=== PATIENT | male | born 1990 | race Caucasian/White ===

== ENCOUNTER 2018-06-09 10:03 | Emergency (ER) | payer SELFPAY ==
--- OUTSIDE RECORDS SUMMARY | 2018-06-09 10:05 | XMS REPORT | Clinical Summary ---
:1990 Author Organization [facility] Address [address] [place] [address] Care Team Providers Name Role Phone Sharpless Primary Care Provider Allergies No Known Allergies Medications No known medications Active Problems Problem Noted Date Hypomagnesemia 07/19/2016 Leukocytosis 07/19/2016 Smoker 07/19/2016 Metabolic acidosis 07/19/2016 Dental abscess 07/18/2016 Pain due to abscess 07/18/2016 Trismus 07/18/2016 Family History Medical History Relation Name Comments Hypertension Father Hypertension Maternal Grandfather Hypertension Maternal Grandmother Hypertension Mother Relation Name Status Comments Father Maternal Grandfather Maternal Grandmother Mother Social History Tobacco Use Types Packs/Day Years Used Date Current Every Day Smoker Cigarettes 0.5 3 Alcohol Use Drinks/Week oz/Week Comments Yes Used to drink 18 packs per week. Quit 2 weeks ago. Sex Assigned at Date Recorded Not on file Job Start Date Occupation Industry Not on file Not on file Not on file Travel History Travel Start Travel End No recent travel history available. Last Filed Vital Signs Not on file Plan of Treatment Not on file Results Not on fileafter 06/08/2017 Advance Directives For more information, please contact:[facility] [employer] [address] [place], [place] [phone] Code Status Date Activated Date Inactivated Comments Full Code 07/18/2016 2:57 PM 07/21/2016 6:58 PM This code status was determined by: Patient Full Code 07/18/2016 8:59 AM 07/18/2016 2:57 PM This code status was determined by: Patient
--- OUTSIDE RECORDS SUMMARY | 2018-06-09 10:05 | XMS REPORT ---
:1990 [facility] Address [address] [place] [address] Dr. Sow [address] [place] [id number] Care Team Providers Name Role Phone JENN LOUISA MITCHELL Unavailable Unavailable Problems This patient has no known problems. Allergies, Adverse Reactions, Alerts This patient has no known allergies or adverse reactions. Medications This patient has no known medications. Results Test Description Test Time Test Comments Text Results Atomic Results Result Comments AFB CULTURE + SMEAR 2016-09-05 18:21:00 Test Item Value Reference Range Comments CULTURE (BEAKER) (test [id number]) No acid-fast bacilli isolated in 42 days AFB SMEAR (BEAKER) (test [id number]) No acid fast bacilli seen FUNGUS CULTURE + [id number] 17:21:00 Test Item Value Reference Range Comments CULTURE (BEAKER) (test No fungus isolated in 28 days [id number]) FUNGUS SMEAR (BEAKER) (test No fungi seen [id number])
[2018-06-09] MEDS ORDERED: IBUPROFEN 400 MG TAB ONE (10:33)
[2018-06-09] MEDS ORDERED: IBUPROFEN 200 MG TAB PO ONE (10:34)
--- NOTE | 2018-06-09 11:02 | RAD REPORT ---
EXAM DESCRIPTION: RAD -Hand Left 3 View - 06/09/2018 10:46 am CLINICAL HISTORY: Left hand pain status post injury FINDINGS: Mildly displaced fracture involves the fifth metacarpal neck with angulation at the fractu re site. No dislocation
[2018-06-09] MEDS ORDERED: HYDROCODONE/APAP 5/325 MG TAB ONE (11:38)
--- NOTE | 2018-06-09 11:57 | EDPHYS ---
Physician Documentation [facility] Name: Doc Hatch Age: 27 yrs Sex: Male : 1990 Arrival Date: 06/09/2018 Time: 10:04 Bed 19 Private MD: None, None ED Physician Shayan Diamond HPI: 06/09 10:30 This 27 yrs old Male presents to ER via Ambulatory with complaints of Hand gs Injury. 10:30 The patient or guardian reports injury. The complaints affect the left hand diffusely. gs Context: The problem was sustained at home, resulted from a crush injury, a direct blow. Onset: The symptoms/episode began/occurred acutely, just prior to arrival. Modifying factors: the symptoms are aggravated by movement. Associated signs and symptoms: Pertinent negatives: decreased sensation distally, numbness distally. Severity of symptoms: At their worst the symptoms were moderate, in the emergency department the symptoms are unchanged. The patient has not experienced similar symptoms in the past. The patient has not recently seen a physician. Historical: - Allergies: 10:13 No Known Allergies; iw - Home Meds: 10:13 None [Active]; iw - PMHx: 10:13 None; iw - PSHx: 10:13 jaw surgery; iw - Immunization history:: Adult Immunizations not up to date. - Social history:: Smoking status: Patient uses tobacco products, smokes one-half pack cigarettes per day. - Ebola Screening: : Patient negative for fever greater than or equal to 101.5 degrees Fahrenheit, and additional compatible Ebola Virus Disease symptoms Patient denies exposure to infectious person Patient denies travel to an Ebola-affected area in the 21 days before illness onset No symptoms or risks identified at this time. ROS: 10:30 All other systems are negative. gs Exam: 10:30 Head/Face: Normocephalic, atraumatic. Eyes: Pupils equal round and reactive to light, gs extra-ocular motions intact. Lids and lashes normal. Conjunctiva and sclera are non-icteric and not injected. Cornea within normal limits. Periorbital areas with no swelling, redness, or edema. ENT: Nares patent. No nasal discharge, no septal abnormalities noted. Tympanic membranes are normal and external auditory canals are clear. Oropharynx with no redness, swelling, or masses, exudates, or evidence of obstruction, uvula midline. Mucous membranes moist. Neck: Trachea midline, no thyromegaly or masses palpated, and no cervical lymphadenopathy. Supple, full range of motion without nuchal rigidity, or vertebral point tenderness. No Meningismus. Chest/axilla: Normal chest wall appearance and motion. Nontender with no deformity. No lesions are appreciated. Cardiovascular: Regular rate and rhythm with a normal S1 and S2. No gallops, murmurs, or rubs. Normal PMI, no JVD. No pulse deficits. Respiratory: Lungs have equal breath sounds bilaterally, clear to auscultation and percussion. No rales, rhonchi or wheezes noted. No increased work of breathing, no retractions or nasal flaring. Abdomen/GI: Soft, non-tender, with normal bowel sounds. No distension or tympany. No guarding or rebound. No evidence of tenderness throughout. Back: No spinal tenderness. No costovertebral tenderness. Full range of motion. Skin: Warm, dry with normal turgor. Normal color with no rashes, no lesions, and no evidence of cellulitis. Neuro: Awake and alert, GCS 15, oriented to person, place, time, and situation. Cranial nerves II-XII grossly intact. Motor strength 5/5 in all extremities. Sensory grossly intact. Cerebellar exam normal. Normal gait. 10:30 Constitutional: The patient appears alert, awake, uncomfortable. 10:30 Musculoskeletal/extremity: ROM: limited active range of motion due to pain, limited passive range of motion due to pain, Circulation is intact in all extremities. Sensation intact. Compartment Syndrome exam of affected extremity: is normal. Vital Signs: 10:13 BP 139 / 93; Pulse 75; Resp 16; Temp 97.5; Pulse Ox 99% on R/A; Weight 73.48 kg; Height iw 5 ft. 11 in. (180.34 cm); Pain 8/10; 10:13 Body Mass Index 22.59 (73.48 kg, 180.34 cm) iw Procedures: 11:47 Splinting: Splint applied to left wrist and left hand applied by tech. gs MDM: 10:15 Patient medically screened. gs 10:30 Differential diagnosis: dislocation, closed fracture, contusion. Data reviewed: vital gs signs, nurses notes. Counseling: I had a detailed discussion with the patient and/or guardian regarding: the historical points, exam findings, and any diagnostic results supporting the discharge/admit diagnosis, the presence of at least one elevated blood pressure reading (>120/80) during this emergency department visit, radiology results. Response to treatment: the patient's symptoms have mildly improved after treatment, and as a result, I will discharge patient. Special discussion: I have referred the patient to see his PCP for further evaluation of high blood pressure. 06/09 10:16 Order name: Hand Left 3 View XRAY 06/09 11:03 Order name: RAD; Complete Time: 11:47 EDNY 06/09 11:28 Order name: Ulnar Gutter splint; Complete Time: 11:28 em Administered Medications: 10:27 Drug: Motrin 600 mg Route: PO; em 11:26 Follow up: Response: No adverse reaction; Pain is unchanged, physician notified em 11:27 Drug: [place] 5 mg-325 mg 1 tabs Route: PO; em 12:03 Follow up: Response: No adverse reaction; Pain is decreased em Disposition: 06/09/18 11:55 Discharged to Home. Impression: Displaced fracture of base of fifth metacarpal bone. left hand. - Condition is Stable. - Discharge Instructions: Metacarpal Fracture, [id number]. - Prescriptions for Tylenol- Codeine #4 300-60 mg Oral Tablet - take 1 tablet by ORAL route every 6 hours As needed; 10 tablet. - Medication Reconciliation Form, Thank You Letter, Antibiotic Education, Prescription Opioid Use form. - Follow up: Private Physician; When: 2 - 3 days; Reason: Re-evaluation by your physician. Signatures: Dispatcher [employer] [facility] Amado Lee, ANIMAL CONTROL SPECIALIST ANIMAL CONTROL SPECIALIST Kym Ashby, PRIYA POWERS Shayan Diamond MD MD gs Corrections: (The following items were deleted from the chart) 12:04 11:55 06/09/2018 11:55 Discharged to Home. Impression: Displaced fracture of base of em fifth metacarpal bone. left hand. Condition is Stable. Forms are Medication Reconciliation Form, Thank You Letter, Antibiotic Education, Prescription Opioid Use. Follow up: Private Physician; When: 2 - 3 days; Reason: Re-evaluation by your physician.
--- NOTE | 2018-06-09 11:57 | ER ---
Nurse's Notes [facility] Name: Doc Hatch Age: 27 yrs Sex: Male : 1990 Arrival Date: 06/09/2018 Time: 10:04 Bed 19 Private MD: None, None Diagnosis: Displaced fracture of base of fifth metacarpal bone. left hand Presentation: 06/09 10:11 Presenting complaint: Patient states: was working on his car this morning, gross fell iw onto left hand, bruising and swelling noted to hand. Transition of care: patient was not received from another setting of care. Onset of symptoms was June 09, 2018. Risk Assessment: Do you want to hurt yourself or someone else? Patient reports no desire to harm self or others. Initial Sepsis Screen: Does the patient meet any 2 criteria? No. Patient's initial sepsis screen is negative. Does the patient have a suspected source of infection? No. Patient's initial sepsis screen is negative. Care prior to arrival: None. 10:11 Method Of Arrival: Ambulatory iw 10:11 Acuity: FIGUEROA 4 iw Historical: - Allergies: 10:13 No Known Allergies; iw - Home Meds: 10:13 None [Active]; iw - PMHx: 10:13 None; iw - PSHx: 10:13 jaw surgery; iw - Immunization history:: Adult Immunizations not up to date. - Social history:: Smoking status: Patient uses tobacco products, smokes one-half pack cigarettes per day. - Ebola Screening: : Patient negative for fever greater than or equal to 101.5 degrees Fahrenheit, and additional compatible Ebola Virus Disease symptoms Patient denies exposure to infectious person Patient denies travel to an Ebola-affected area in the 21 days before illness onset No symptoms or risks identified at this time. Screenin:34 Abuse screen: Denies threats or abuse. Nutritional screening: No deficits noted. em Tuberculosis screening: No symptoms or risk factors identified. Fall Risk None identified. Assessment: 10:26 General: Appears in no apparent distress. comfortable, Behavior is calm, cooperative. em Pain: Complains of pain in left hand Pain currently is 8 out of 10 on a pain scale. Neuro: Level of Consciousness is awake, alert, obeys commands, Oriented to person, place, time, situation. Cardiovascular: Capillary refill < 3 seconds Patient's skin is warm and dry. Respiratory: Airway is patent Respiratory effort is even, unlabored, Respiratory pattern is regular, symmetrical. Derm: Skin is intact, is healthy with good turgor, Skin is pink, warm \T\ dry. Bruising that is on left hand. Musculoskeletal: Range of motion: limited in MCP of left little finger and MCP of left ring finger Swelling present in left hand. Injury Description: Crush injury sustained to left hand. 10:45 Reassessment: Patient appears in no apparent distress at this time. I agree with above iw assessment by Amado Lee LVN. 11:30 Reassessment: Patient appears in no apparent distress at this time. Patient and/or em family updated on plan of care and expected duration. Pain level reassessed. Patient is alert, oriented x 3, equal unlabored respirations, skin warm/dry/pink. Patient states feeling better. Vital Signs: 10:13 BP 139 / 93; Pulse 75; Resp 16; Temp 97.5; Pulse Ox 99% on R/A; Weight 73.48 kg; Height iw 5 ft. 11 in. (180.34 cm); Pain 8/10; 10:13 Body Mass Index 22.59 (73.48 kg, 180.34 cm) iw ED Course: 10:04 Patient arrived in ED. sb2 10:05 None, None is Private Physician. sb2 10:08 Shayna Diamond MD is Attending Physician. gs 10:12 Triage completed. iw 10:13 Arm band placed on. iw 10:21 Amado Lee LVN is Primary Nurse. em 10:34 Patient has correct armband on for positive identification. Bed in low position. Call em light in reach. 11:28 No provider procedures requiring assistance completed. Patient did not have IV access em during this emergency room visit. Orthoglass splint: Ulnar gutter/Boxer splint applied on left forearm. Administered Medications: 10:27 Drug: Motrin 600 mg Route: PO; em 11:26 Follow up: Response: No adverse reaction; Pain is unchanged, physician notified em 11:27 Drug: [place] 5 mg-325 mg 1 tabs Route: PO; em 12:03 Follow up: Response: No adverse reaction; Pain is decreased em Outcome: 11:55 Discharge ordered by . gs 12:04 Discharged to home ambulatory. em 12:04 Condition: good 12:04 Discharge instructions given to patient, Instructed on discharge instructions, follow up and referral plans. medication usage, Demonstrated understanding of instructions, follow-up care, medications, Prescriptions given X 1. 12:04 Patient left the ED. em Signatures: Amado Lee, TROUBLE TRACER TROUBLE TRACER em Kym Ashby RN RN iw Starr, Gregory, MD MD Angela Reynolds sb2
== END 2018-06-09 12:04 | disposition home or self-care (01) ==
LOC: ER 10:03
PROC: 2W3DX1Z Immobilization of Left Lower Arm using Splint (ICD-10-PCS; principal; 2018-06-09)
DX: S62.317A Displaced fracture of base of fifth metacarpal bone, left hand, initial encounter for closed fracture (principal); W22.8XXA Striking against or struck by other objects, initial encounter; Y93.89 Activity, other specified; Y92.009 Unspecified place in unspecified non-institutional (private) residence as the place of occurrence of the external cause; F17.210 Nicotine dependence, cigarettes, uncomplicated
CPT/HCPCS: 99283